=== PATIENT | female | born 1975 ===

== ENCOUNTER 2017-01-16 15:00 | Outpatient (RCR) | payer BC | END 2017-01-26 | disposition home or self-care (01) | LOC: WCC 15:00 | DX: F43.12 Post-traumatic stress disorder, chronic (principal); F33.8 Other recurrent depressive disorders; F41.9 Anxiety disorder, unspecified; G47.10 Hypersomnia, unspecified; R53.83 Other fatigue; Z91.040 Latex allergy status | CPT/HCPCS: 99204 ==

== ENCOUNTER 2017-01-18 13:00 | Outpatient (RCR) | payer SELFPAY ==
--- NOTE | 2017-01-15 02:00 | Hyperbaric Consultation ---
HYPERBARIC OXYGEN CONSULTATION REASON FOR CONSULTATION: Hyperbaric oxygen. History Of Present Illness: This is a 42-year-old female who was seen by myself recently. The patient is interested in doing hyperbaric oxygen. The patient notes excessive amounts of stress and weight gain and difficulty with maintaining concentration. The patient's medications all reviewed. Past Medical History: Notable for PTSD, multiple allergies including sensitivity, prior history of urinary tract infection, and history of breast implants, hernia repair. Family History: Notable for cerebral aneurysm, otherwise, negative with the exception of hypertension. Social History: The patient is . She does have a child and is . She is an actress and model. She is a nonsmoker. Review Of Systems: Otherwise negative. Of note, excessive amount of stress. IMPRESSION: 1. Insomnia. 2. Posttraumatic stress disorder. 3. Depression. 4. Anxiety. 5. Tiredness. Recommendations: The patient appears to be an appropriate candidate to undergo hyperbaric oxygen. The patient has been made aware of the risks and is interested in proceeding. The patient is to follow clinically for further mental issues/medical issues and follow up in the office. Would recommend 10 treatments at 2.0 MELL for 2 hour intervals with further recommendations for ongoing upon completion Philip Raines M.D. DR: LIZ JOB#: [id number] CC: JONY
== END 2017-01-26 | disposition home or self-care (01) ==
LOC: WCC 13:00
DX: F43.12 Post-traumatic stress disorder, chronic (principal); F33.8 Other recurrent depressive disorders; F41.9 Anxiety disorder, unspecified; G47.10 Hypersomnia, unspecified; R53.83 Other fatigue; Z91.040 Latex allergy status